=== PATIENT | female | born 1980 | race Caucasian/White ===

== ENCOUNTER 2017-11-29 13:55 | Emergency (ER) | payer SELFPAY ==
[~2017-11-29] VITALS: Ht 165.1 cm; Wt 102.3 kg
[2017-11-29 14:00] VITALS: BP 116/78; TEMP 97.7
[2017-11-29 14:35] LABS: COLLECTION METHOD CLEAN CATCH
[2017-11-29 14:43] LABS: MUCOUS Present /lpf; PH 5 (5-8); URINE APPEARANCE Hazy; URINE BACTERIA None Seen /hpf; URINE BILIRUBIN Negative (NEGATIVE); URINE BLOOD Negative (NEGATIVE); URINE COLOR Amber; URINE GLUCOSE Negative (NEGATIVE); URINE KETONE 2+ (NEGATIVE); URINE LEUKOCYTE ESTERASE Negative (NEGATIVE); URINE NITRATE Negative (NEGATIVE); URINE PROTEIN(semi-quant) 1+ (NEGATIVE)
[2017-11-29 15:07] LABS: BASO % 0.3 % (0.0-2.0); EOS % 0.1 % (0-4.0); GRAN # 11.7 (1.4-6.5); GRAN % 91.4 % (42.2-75.2); HEMATOCRIT 42.8 % (37.0-47.0); HEMOGLOBIN 14.9 g/dl (12.5-16.0); LYMPH # 0.7 (1.2-3.4); LYMPH % 5.7 % (20.0-51.0); MEAN CELL VOLUME 92 fl (80.0-100.0); MEAN CORPUSCULAR HEMOGLOBIN 32 pg (27.0-31.0); MEAN CORPUSCULAR HGB CONC 35 g/dl (33.0-37.0); MEAN PLATELET VOLUME 9.5 fl (7.4-10.4); MONO # 0.3 (0.1-0.6); PLATELET COUNT 296 K/mm3 (130-400); RED BLOOD COUNT 4.63 M/mm3 (4.10-5.30); REDCELL DISTRIBUTION WIDTH-CV 12.3 % (11.5-14.5)
[2017-11-29 15:17] LABS: ALBUMIN 4.4 gm/dL (3.5-5.0); BILIRUBIN,TOTAL 0.7 mg/dL (0.0-1.0); C-REACTIVE PROTEIN 0.8 mg/dL (0.0-0.9); CALCIUM 9.6 mg/dL (8.4-10.2); CREATININE, serum 0.64 mg/dL (0.52-1.25); POTASSIUM 3.8 mmol/L (3.4-5.0); TOTAL PROTEIN 9.2 gm/dL (6.4-8.2)
[2017-11-29] MEDS ORDERED: ZOFRAN ODT4 MG PO (15:48)
[2017-11-29] MEDS ORDERED: REGLAN 10MG10 MG/TAB PO (15:48)
[2017-11-29] MEDS ORDERED: PROTONIX 40MG T40 MG PO (15:48)
[2017-11-29 16:32] VITALS: PULSE 84
[2017-11-30] MEDS ORDERED: PREVPAC PO (17:18)
[2017-11-30] MEDS ORDERED: ZOFRAN ODT4 MG PO (17:18)
== END 2017-11-29 16:32 | disposition home or self-care (01) ==
LOC: COL.ER 13:55
PROVIDERS: Family Medicine
DX: K31.84 Gastroparesis (principal); Z90.89 Acquired absence of other organs
CPT/HCPCS: C9113; J2060; J2405; J2550; J2765; J7030